=== PATIENT | female | born 1935 | race Caucasian/White ===

== ENCOUNTER 2021-09-13 11:26 | Emergency (ER) | payer MEDICARE, MEDICAID, SELFPAY ==
[2021-09-13] VITALS (12 sets, daily range): BP systolic 142–154; BP diastolic 79–90; PULSE 87–108; RESP 13–37; TEMP 36.3–36.4; O2SAT 92–94
--- NOTE | ~2021-09-13 | XR_ITS ---
XR chest 1V portable DATE: 09/13/2021 12:51 INDICATION: Altered level of awareness TECHNIQUE: Portable AP chest on 09/13/2021 at 1248 hours COMPARISON: None FINDINGS: Increased density left retrocardiac area suggest left lower lobe atelectasis and/or consoli dation, possible large hiatal hernia. CT thorax examination would be more definitive. The lungs otherwise appear clear. No pleural effusion or pulmonary vascular congestion or pneumothora x is evident. No hilar or mediastinal enlargement is detected. Heart size is likely within normal range considering magnification associated with AP projection. The re is thoracic aortic calcification. There is diffuse osteopenia. There is vertebroplasty at T11, T12 and L1. Fracture deformities are suggested at T9 and T10. IMPRESSION: Increased retrocardiac density on left suggesting left lower lobe atelectasis, consolidat ion and/or hiatal hernia Aortic atherosclerosis Diffuse osteopenia Fracture deformity of T9 and T10, vertebroplasty at T11, T12, L1 Reviewed, dictated and finalized at location [facility]. [employer]IC IMPRESSION: Increased retrocardiac density on left suggesting left lower lobe a telectasis, consolidation and/or hiatal hernia Aortic atherosclerosis Diffuse osteopenia Fracture deformity of T9 and T10, vertebroplasty at T11, T12, L1
--- NOTE | ~2021-09-13 | CT_ITS ---
EXAMINATION: CT brain wo con DATE: 09/13/2021 11:31 INDICATION: Nonverbal which is a new finding TECHNIQUE: Computed tomography (CT) of the head was performed without intravenous contrast. Sagittal and coronal reconstructions were performed. The mA was adjusted according to patient size. Iterative reconstruction technique was employed. The dose-length product was 605.33 mGy-cm. COMPARISON: None FINDINGS: 3.6 x 3.7 x 3.2 cm peripherally isodense, centrally hypodense mass in the anterior left temporal lobe concerning for malignancy either primary or metastatic. There is prominent surrounding vasogenic [place] ma throughout the left temporal lobe. This results in localized mass effect with effacement of the engle lci along the left temporal lobe. There is however no subfalcine or uncal herniation likely due to th e underlying moderate diffuse volume loss with otherwise symmetric increased prominence of the sulci and ventricles. Small region of encephalomalacia at the left basal ganglia involving the lenticular n ucleus, caudate nucleus and intervening anterior limb of the internal capsule consistent with chronic infarct. No acute intracranial hemorrhage, acute infarction or abnormal extra axial fluid collection . There is mild scattered white matter hypoattenuation consistent with chronic small vessel ischemic disease. The orbits and mastoid air cells are normal. Partial opacification of the right ethmoid sin us. Intracranial calcified cerebral atherosclerosis is noted. Hyperostosis frontalis. IMPRESSION: 1. Vasogenic edema in the left temporal lobe surrounding a 3.7 cm mass suspicious for malignancy, eit her primary or metastatic. No uncal or subfalcine herniation. Correlate for history of prior malignan cy and would consider pre and postcontrast MRI for further evaluation of the mass and to assess for a ny additional occult lesions. 2. 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 2. Age-related changes including moderate diffuse volume loss and mild scattered white matter hypoatt enuation consistent with chronic small vessel ischemic disease. Reviewed, dictated and finalized at location [facility]. L BUFFER IMPRESSION: 1. Vasogenic edema in the left temporal lobe surrounding a 3.7 cm mass suspicio us for malignancy, either primary or metastatic. No uncal or subfalcine herniat ion. Correlate for history of prior malignancy and would consider pre and postc ontrast MRI for further evaluation of the mass and to assess for any additional occult lesions. 2. 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 2. Age-related changes including moderate diffuse volume loss and mild scattere d white matter hypoattenuation consistent with chronic small vessel ischemic di sease.
--- NOTE | 2021-09-13 11:54 | ECG_ITS ---
Measurements Intervals [place] Rate: 87 P: [place]: 0 QRS: -10 QRSD: 99 T: 38 QT: 272 QTc: 329 Interpretive Statements SINUS OR ECTOPIC ATRIAL RHYTHM CANNOT RULE OUT SEPTAL INFARCT, AGE INDETERMINATE CONSIDER INFERIOR INFARCT, AGE INDETERMINATE BORDERLINE T WAVE ABNORMALITY- HIGH LATERAL LEADS BASELINE ARTIFACT- I, II, III, AVR, AVL, AVF, V1-V3 ABNORMAL ECG Electronically Signed On 09-13-2021 12:49:05 RESEARCH PHYSICIST by Jason Doshi D.O.
[2021-09-13 11:58] LABS: Glucose Point of Care 101 mg/dl (65-105)
--- NOTE | 2021-09-13 12:04 | PC.NURSE ---
RN attempted labs x 2, ship laborer now attempting.
--- NOTE | 2021-09-13 12:49 | ED.GENADULT ---
HPI - General Adult General Chief complaint: Suspected CVA Stated complaint: CODE CVA Time Seen by Provider: 09/13/21 12:04 Source: EMS and RN notes reviewed History of Present Illness HPI narrative: Patient is a 86 y/o female brought in by EMS for slurred speech. Patient was reportedly last seen at her baseline around 7:30 AM this morning. Staff at her facility noticed slurred speech around 9:30 AM. Patient is unable to provide history due to Dementia and aphasia. Related Data Allergies Allergy/AdvReac Type Severity Reaction Status Date / Time caffeine Allergy Other Verified 09/13/21 13:54 ciprofloxacin [From Cipro] Allergy Other Verified 09/13/21 13:54 codeine Allergy Other Verified 09/13/21 13:54 diphenhydramine Allergy Confusion Verified 09/13/21 13:54 [From Benadryl] gabapentin Allergy Other Verified 09/13/21 13:54 hydroxyzine Allergy Other Verified 09/13/21 13:54 iodine Allergy Other Verified 09/13/21 13:54 lorazepam Allergy Other Verified 09/13/21 13:54 methylprednisolone Allergy Other Verified 09/13/21 13:54 metronidazole [From Flagyl] Allergy Other Verified 09/13/21 13:54 nitrofurantoin Allergy Other Verified 09/13/21 13:54 Penicillins Allergy Other Verified 09/13/21 13:54 salicylates Allergy Other Verified 09/13/21 13:54 sertraline Allergy Other Verified 09/13/21 13:54 sucralfate [From Carafate] Allergy Other Verified 09/13/21 13:54 Sulfa (Sulfonamide Allergy Other Verified 09/13/21 13:54 Antibiotics) venlafaxine Allergy Other Verified 09/13/21 13:54 Review of Systems Review of Systems: ROS unobtainable: Yes unobtainable due to medical condition Exam Const: General: no acute distress Orientation/consciousness: Other orientation findings (oriented x 0) HENMT: Head: normocephalic Ears: external ears normal General nose exam: Normal external nose present Eyes: General: appearance normal, both eyes and all related structures Conjunctivae: conjunctivae normal Neck: Neck: normal visual inspection and full ROM Chest: Chest palpation & inspection: normal inspection of the chest and no tenderness Resp: Effort & Inspection: normal respiratory effort Auscultation: clear to auscultation bilaterally Cardio: Rate: regular rate Rhythm: regular rhythm GI: GI Palp: No abdominal tenderness and Yes Soft to palpation Skin: General skin exam: normal color and turgor normal Neuro: General: other (does not follow commands or answer question) Cognition (Neuro): abnormal cognition Speech: aphasia Motor exam (neuro): Other motor observations present (moves all 4 extremities, does not follow commands) Extrem: General: normal to inspection, full ROM and no pedal edema Psych: Appearance: grossly normal Mental Status: mental status grossly normal Affect: normal affect Course Reevaluation(s) Reevaluation #1: Discussed with son Karl and informed him about patient's condition and CT results. Son states that patient was in hospice, but was take off hospice because she was doing well. Offered son option of transferred patient for neurosurgical evaluation of brain mass. He states that he does not want such intervention and would like to put patient back on hospice. Date: 09/13/21 Time: 13:15 Reevaluation #2: Son is here. He talked the patient. He reaffirms that he will get patient back on hospice. He requests steroids stopped as it will not change ultimate out. He is agreeable with plan to discharge patient back to senior living. He is aware the patient's prognosis is poor and life expectancy is limited. Date: 09/13/21 Time: 13:55 Vital Signs Vital signs: Vital Signs Temperature 36.4 C 09/13/21 11:38 Pulse Rate 87 09/13/21 11:38 Respiratory Rate 14 09/13/21 11:38 Pulse Oximetry 92 09/13/21 11:38 Temperature 36.3 C L 09/13/21 15:54 Pulse Rate 100 09/13/21 15:54 Respiratory Rate 14 09/13/21 15:54 Blood Pressure 142/90 H 09/13/21 15:54 Pulse Oximetry 94 09/13/21 15:54 Med
[2021-09-13 13:03] LABS: Basophils Absolute Auto 0.1 K/mm3 (0.0-0.1); Basophils Percent Auto 0.5 % (0.2-1.2); Eosinophils Percent Auto 0.2 % (0-4.4); Hematocrit 47.8 % (37.0-47.0); Hemoglobin 15.3 g/dL (12.0-15.0); Immature Granulocyte Absolute 0.07 K/mm3 (0.00-0.031); Immature Granulocyte Percent A 0.5 % (0-0.5); Lymphocytes Percent Auto 16.1 % (18.3-44.2); Mean Corpuscular Volume 93.7 fl (80-100); Mean Platelet Volume 8.5 fl (7.4-10.4); Monocytes Absolute Auto 1.3 K/mm3 (0.1-0.6); Neutrophils Absolute Auto 9.5 K/mm3 (1.3-6.7); Neutrophils Percent Auto 72.7 % (45.5-73.1); Platelet Count Result 511 k/mm3 (150-375); Red Cell Distribution Width 13.4 % (11.5-14.5)
[2021-09-13 13:12] LABS: Albumin Level 3.8 g/dL (3.5-5.1); Alkaline Phosphatase 86 U/L (38-126); Anion Gap 8 mmol/L (8-16); Aspartate Amino Transferase 21 U/L (14-36); Bilirubin,Total 0.7 mg/dL (0.2-1.3); Blood Urea Nitrogen 32 mg/dL (7-17); Calcium 9.7 mg/dL (8.4-10.2); Carbon Dioxide 29 mmol/L (22-30); Chloride 94 mmol/L (98-107); Estimated CRCL calculation 72 ml/min; Estimated Glomerular Filt Rate > 60; Glucose 108 mg/dL (65-110); Potassium 4.2 mmol/L (3.4-5.0); Sodium 131 mmol/L (137-145)
[2021-09-13 13:24] LABS: Troponin I < 0.012 ng/mL (0.000-0.034)
--- NOTE | 2021-09-13 14:18 | PC.NURSE ---
family reports pt recently d/c'd from hospice and reports he spoke with hospice and wants to restart hospice and does not want to restart any medications to prolong illness
--- NOTE | 2021-09-13 14:25 | PC.NURSE ---
report called to [facility] for transport
[2021-09-13 14:54] LABS: Alanine Aminotransferase < 6 U/L (4-35)
== END 2021-09-13 15:57 ==
PROVIDERS: Emergency Medicine; Emergency Provider Emergency Medicine
DX: G93.9 Disorder of brain, unspecified (principal); G93.6 Cerebral edema; J18.9 Pneumonia, unspecified organism; R94.31 Abnormal electrocardiogram [ECG] [EKG]
CPT/HCPCS: 36415; 70450; 71045; 80053; 82948; 84484; 85025; 93005; 99284